=== PATIENT | male | born 1970 | race Two or more races ===

== ENCOUNTER 2024-12-27 05:55 | Emergency (ER) | payer MEDICAID, SELFPAY ==
[2024-12-27] VITALS (8 sets, daily range): BP systolic 107–181; BP diastolic 76–92; PULSE 54–80; RESP 18–19; TEMP 36.4–37.1; O2SAT 94–99; BMI 30.2
--- NOTE | 2024-12-27 | XR_ITS ---
MRI abdomen, without contrast. MRCP Date and time of exam: December 27, 2024 1457 hrs. Indications: Epigastric pain nausea vomiting several days, elevated liver function tests on laboratory examination today Technique: Multiple axial and coronal images of the abdomen have been obtained with the Siemens 1.5T MRI scanner. Images obtained included T1 weighted transverse images, T2-weighted transverse images, T2-weighted transverse images fat-suppressed, T2 weighted haste fat suppressed transverse images, T1 weighted images, in and out of phase images, T2-weighted coronal images, breath hold, T2 weighted haze coronal images as well as T2 weighted coronal thick slab images, MRCP. Findings: Cirrhosis, liver nodular in contour No intrahepatic biliary tract dilatation No gallstones No significant thickening of the gallbladder wall Common hepatic duct common bile duct are not enlarged, 3 mm no common bile duct stones No pancreatic mass No splenomegaly No hydronephrosis Aorta normal size Impression: Cirrhosis. Negative for cholelithiasis, negative for cholecystitis No common hepatic or common bile duct stones
--- NOTE | 2024-12-27 06:26 | EDNOTE_ITS ---
ED Abdominal Pain RME/HPI General Chief Complaint: Abdominal Pain Stated complaint: UPPER ABDOMINAL PAIN Time seen by provider: 12/27/24 06:19 Arrival date/time: 12/27/24 05:55 RME / HPI RME / HPI narrative: DR. INIGUEZ MAIN ED EVALUATION: This section includes all my notes and documentations, including HPI, PE, and ED course.? Tarun Iniguez MD HPI: 54 year old male with epigastric pain for several days. With nausea and vomiting and anorexia. No surgeries, daily medications, or known allergies. No other complaints. ROS: All negative except as documented in HPI. Physical Exam: General:? Alert and oriented.? Appears uncomfortable. Eyes:? Conjunctivae and lids clear. ENT:? No nasal congestion.? ? Neck:? Supple. Lungs:? No respiratory distress.? Abdomen: Soft with epigastric tenderness. Decreased bowel sounds. No distention. No rebound or guarding. Skin:? Warm and dry.? Neuro:? Alert and oriented X 3.? I reviewed all diagnostic test results. My review of the gallbladder US report is?NAD. My review of the CT of abdomen/pelvis is cirrhosis, mild thickening of the gallbladder wall, consider HIDA scan. Blood tests and urine tests remarkable for total bili 4.7, direct bili 1.7, AST 141, ALT 54, alk phos 167. Treatment here included Famotidine 40 mg PO X1, Sodium Chloride (Ns) 1,000 mls @ 999 mls/hr IV, Ketorolac Tromethamine 30 mg IVP X1, Morphine Sulfate 6 mg IVP X1, Ondansetron HCl 4 mg PO X2 total 8 mg, Pantoprazole Sodium 40 mg PO X1. MRCP ordered. Patient signed out to Dr. Cobb at 1230 hours, pending MRCP. Tarun Iniguez MD Related Data Previous Rx's ?Medication ?Instructions ?Recorded cyclobenzaprine 5 mg tablet 5 mg PO TID PRN muscle spa sm #30 11/08/24 tabs naproxen 500 mg tablet 500 mg PO BID PRN pain #30 t abs 05/02/24 Allergies Allergy/AdvReac Type Severity Reaction Status Date / Time No Known Allergies Allergy Verified 05/02/24 20:53 Course Quality Measures none Orders Category Date Time Status CT Screening NOW Care 12/27/24 09:09 Active MRI Screening NOW Care 12/27/24 09:10 Active Saline [Insert IV] NOW Care 12/27/24 09:[address] abdomen pelvis w con Stat Exams 12/27/24 09:09 Completed MR MRCP Stat Exams 12/27/24 Ordered US gall bladder Stat Exams 12/27/24 06:36 Completed Amylase Stat Lab 12/27/24 07:53 Completed Bilirubin,Direct Stat Lab 12/27/24 07:53 Completed CBC Stat Lab 12/27/24 07:53 Completed CMP [Comprehensive Metabolic Panel] Stat Lab 12/27/24 07:53 Completed Lipase Stat Lab 12/27/24 07:53 Completed Magnesium Stat Lab 12/27/24 07:53 Completed UA, C/S IF [Urinalysis, C/S if Indicated] Stat Lab 12/27/24 07:22 Completed Famotidine [Pepcid] Med 12/27/24 06:35 Discontinued 40 mg PO X1 ONE Ketorolac Inj [Toradol Inj] Med 12/27/24 11:30 Discontinued 30 mg IVP X1 ONE Morphine Inj Med 12/27/24 09:09 Discontinued 6 mg IVP X1 ONE Ondansetron Inj [Zofran Inj] Med 12/27/24 09:09 Discontinued 4 mg IVP X1 ONE Ondansetron Odt [Zofran Odt] Med 12/27/24 06:35 Discontinued 4 mg PO X1 ONE Pantoprazole [Protonix] Med 12/27/24 06:35 Discontinued 40 mg PO X1 ONE Sodium Chloride 0.9% 1000 ml [Ns] 1,000 ml Med 12/27/24 09:09 Discontinued IV 999 mls/hr Vital Signs Vital signs: Vital Signs Temperature 98.6 F 12/27/24 06:03 Pulse Rate 65 12/27/24 06:03 Respiratory Rate 19 12/27/24 06:03 Blood Pressure 174/86 H 12/27/24 06:03 Pulse Oximetry (%) 99 12/27/24 06:03 Oxygen Delivery Method Room Air 12/27/24 06:03 Abdominal Pain MDM MDM Narrative MDM Narrative:: I, Erinn Starkey, am scribing for and in the presence of Dr. Iniguez. 54 year old male with epigastric pain onset 2 days. With nausea and vomiting. Denies any PMHx, surgeries, daily medications, or known allergies. No other complaints. Patient data External records reviewed:: [facility] previous records Clinical information provided by:: patient Social determinants that could affect healthcare access:: none Patient has the following chronic illnesses:: Denies any PMHx, surgeries, daily medications, or known allergies. How is presenting disease/condition affected by chronic disease/condition?: no chronic disease Evaluation data The following diagnostics were reviewed and interpreted by me:: lab results and radiology exam(s) Lab and/or radiology exams considered but not ordered:: none Interpretation Summary: I reviewed all diagnostic test results. My review of the gallbladder US report is?NAD. My review of the CT of abdomen/pelvis is cirrhosis, mild thickening of the gallbladder wall, consider HIDA scan. Blood tests and urine tests remarkable for total bili 4.7, direct bili 1.7, AST 141, ALT 54, alk phos 167. Medications / Prescriptions Medications or Prescriptions considered but not ordered:: none Medication administrations:: Medication Administration History Discontinued Medications Famotidine (Famotidine 20 Mg Tablet) 40 mg PO X1 ONE Stop: 12/27/24 06:36 Last Admin: 12/27/24 07:07 Dose: 40 mg Documented By: MARYLOU Sodium Chloride (Ns) 1,000 mls @ 999 mls/hr IV .Q1H1M ONE Stop: 12/27/24 10:09 Last Admin: 12/27/24 11:31 Dose: 999 mls/hr Documented By: MARYLOU Ketorolac Tromethamine (Ketorolac Inj 30 Mg/Ml Vial) 30 mg IVP X1 ONE Stop: 12/27/24 11:31 Last Admin: 12/27/24 11:39 Dose: 30 mg Documented By: MARYLOU Morphine Sulfate (Morphine Sulf Inj 10 Mg/Ml Vial) 6 mg IVP X1 ONE Stop: 12/27/24 09:10 Last Admin: 12/27/24 11:32 Dose: 6 mg Documented By: MARYLOU Ondansetron HCl (Ondansetron Odt 4 Mg Tabrap) 4 mg PO X1 ONE; Protocol Stop: 12/27/24 06:36 Last Admin: 12/27/24 07:07 Dose: 4 mg Documented By: MARYLOU Ondansetron HCl (Ondansetron Inj 2 Mg/Ml Inj 2 Ml) 4 mg IVP X1 ONE; Protocol Stop: 12/27/24 09:10 Last Admin: 12/27/24 11:32 Dose: 4 mg Documented By: MARYLOU Pantoprazole Sodium (Pantoprazole 40 Mg Tablet) 40 mg PO X1 ONE Stop: 12/27/24 06:36 Last Admin: 12/27/24 07:07 Dose: 40 mg Documented By: DB Famotidine 40 mg PO X1, Sodium Chloride (Ns) 1,000 mls @ 999 mls/hr IV, Ketorolac Tromethamine 30 mg IVP X1, Morphine Sulfate 6 mg IVP X1, Ondansetron HCl 4 mg PO X2 total 8 mg, Pantoprazole Sodium 40 mg PO X1. Consultations Consultation(s) initiated? (list below): No Diagnosis Differential diagnosis abdominal pain: abdominal pain, acute appendicitis, calculus of kidney, constipation, diverticulitis, endometriosis, gastroenteritis, pancreatitis, small bowel obstruction and other (Biliary colic, GERD, PUD, gastritis) Most likely diagnosis given after review of the tests above:: Complete diagnostics pending. Admission Indicated Admission indicated?: not indicated Explain why admission is indicated or not indicated:: Complete diagnostics pending. Admission Request Was there a request for admission?: No Disposition Plan Disposition Plan: other (specify) (Patient signed out to Dr. Cobb at 1230 hours, pending MRCP.) Discharge Plan Prescriptions/Referrals Prescriptions/Med Rec: No Action naproxen 500 mg tablet 500 mg PO BID PRN (Reason: pain) Qty: 30 0RF cyclobenzaprine 5 mg tablet 5 mg PO TID PRN (Reason: muscle spasm) Qty: 30 0RF Referrals: Levy Puente MD [Primary Care Provider] - In 1 week Problem List Clinical Impression: Abdominal pain Patient/Caregiver Discharge Instructions Print Language: [place]ian
--- NOTE | 2024-12-27 06:36 | XR_ITS ---
Examination: Abdomen sonogram, Limited Date and time of exam: December 27, 2024, 0709 hours INDICATIONS: Epigastric pain and vomiting beginning today Technique: Real-time jones scale transabdominal sonographic images of the upper abdomen obtained. Findings: Negative for gallstones Gallbladder wall 0.35 cm no edema Common bile duct 0.4 cm Pancreatic head 2.5 cm Liver 14.2 cm irregular contour fatty infiltration Normal hepatopedal portal venous and Patent IVC IMPRESSION: Normal gallbladder Primary hepatocellular disease
[2024-12-27] MEDS: PANTOPRAZOLE 40 MG TABLET PO (07:07)
[2024-12-27] MEDS: FAMOTIDINE 20 MG TABLET 40 MG PO (07:07)
[2024-12-27] MEDS: ONDANSETRON ODT 4 MG TABRAP PO (07:07)
[2024-12-27 07:30] LABS: Collection Type, Urine Clean Catch; RBC,Urine 0 /hpf (0-3); WBC,Urine 0 /hpf (0-5)
[2024-12-27 07:49] LABS: Bacteria,Urine Rare; Bilirubin,Urine Negative (Negative); Blood,Urine Negative (Negative); Clarity,Urine Clear (Clear/Hazy); Color,Urine Yellow (Lt Yel-Yel); Culture Indicated,Urine Not Indicated; Glucose, Urine Negative (Negative); Ketones,Urine Negative (Negative); Leukocyte Esterase,Urine Negative (Negative); Nitrite,Urine Negative (Negative); PH,Urine 7.0 (5.0-7.0); Protein,Urine Negative (Neg - Trace); Specific Gravity,Urine 1.020 (1.001-1.035); Squamous Epithelial Cell,Urine < 1 /hpf (0-5); Urobilinogen,Urine 3.0 mg/dL (0.0-1.0)
[2024-12-27 08:15] LABS: Basophils # (Auto) 0.1 Thou/mm3 (0.0-0.2); Basophils % (Auto) 1 % (0-2.5); Eosinophils # (Auto) 0.1 Thou/mm3 (0.0-0.5); Eosinophils % (Auto) 2 % (0-10); Hematocrit 42.1 % (41.0-53.0); Hemoglobin 14.7 g/dL (13.5-16.0); Immature Granulocytes Auto 0.01 Thou/mm3 (0.00-0.00); Lymphocytes # (Auto) 1.6 Thou/mm3 (1.0-4.8); Lymphocytes % (Auto) 28 % (10-50); Mean Corpuscular HGB Conc 34.9 g/dl (31.0-37.0); Mean Corpuscular Hemoglobin 34.5 pg (25.0-35.0); Mean Corpuscular Volume 99 fL (80-100); Monocytes # (Auto) 0.6 Thou/mm3 (0.0-0.8); Monocytes % (Auto) 9 % (0-12); Neutrophils # (Auto) 3.5 Thou/mm3 (1.8-7.7); Neutrophils % (Auto) 59 % (37-80); Nucleated Red Blood Cell # 0.00 Thou/mm3 (0.00-0.00); Nucleated Red Blood Cell % 0 /100 WBC (0); Platelet Count 106 Thou/mm3 (140-440); RDW Standard Deviation 52.6 fL (35.1-43.9); Red Blood Count 4.26 Miln/mm3 (4.50-5.90); White Blood Count 6.0 Thou/mm3 (3.8-10.6)
[2024-12-27 08:40] LABS: Alanine Aminotransferase 54 U/L (10-49); Albumin, Serum 3.5 gm/dL (3.5-5.0); Albumin/Globulin Ratio 0.9 (1.2-2.2); Alkaline Phosphatase 167 U/L (46-116); Amylase 138 U/L (30-118); Anion Gap 11 (7-16); Aspartate Amino Transferase 141 U/L (0-34); BUN/Creatinine Ratio 10 Ratio (12-20); Bilirubin,Direct 1.7 mg/dL (0.0-0.3); Bilirubin,Total 4.7 mg/dL (0.3-1.2); Blood Urea Nitrogen 7 mg/dL (9-23); Calcium 8.3 mg/dL (8.3-10.6); Calcium (Corrected) 8.7 mg/dL (8.5-10.1); Carbon Dioxide 25.0 mMol/L (20.0-31.0); Chloride 107 mMol/L (98-107); Creatinine (Component) 0.7 mg/dL (0.6-1.3); Globulin 3.9 gm/dL (2.3-3.5); Glucose 112 mg/dL (74-106); Lipase 70 U/L (12-53); Magnesium 2.0 mg/dL (1.6-2.6); Osmolality,Calculated 283 (275-295); Potassium 4.2 mMol/L (3.4-5.1); Sodium 143 mMol/L (136-145); Total Protein 7.4 gm/dL (5.7-8.2); eGFR > 60 See Note
--- NOTE | 2024-12-27 09:09 | XR_ITS ---
Examination: CT abdomen with intravenous contrast CT pelvis with intravenous contrast 2-D coronal reconstructions 2-D sagittal reconstructions Date and time of exam:December 27, 2024, 11:25 AM Indications: Onset mid abdominal pain today. CTDI: vol (mGy) 8.59 DLP: (mGycm) 493 Technique: Multiple axial sections of the abdomen and pelvis have been obtained. 64 slice high-resolution scanner used. 3 mm axial sections have been obtained, post intravenous injection 60 cc [id number] 2-D sagittal, coronal reconstructions obtained. Low dose protocols were performed. One or more of the following dose reduction techniques were used; automated exposure control, adjustment of the mA and/or KV according to patient size, use of iterative reconstruction technique. Findings: Cirrhosis, liver nodular in contour, no focal liver lesions No gallstones, mild thickening of the gallbladder wall No splenic or pancreatic lesion No renal or ureteral calculi, no hydronephrosis Aorta normal size Normal appendix No bowel obstruction Scattered colonic diverticulosis No diverticulitis Mild prostatomegaly, prostate is irregular in contour No bladder mass Impression: Cirrhosis. No bowel obstruction Mild thickening of the gallbladder wall, consider HIDA scan follow-up
[2024-12-27] MEDS: SODIUM CHLORIDE 0.9% 1000 ML 1,000 ML 999 ML IV (11:31)
[2024-12-27] MEDS: ONDANSETRON INJ 2 MG/ML INJ 2 ML 4 MG IVP (11:32)
[2024-12-27] MEDS: MORPHINE SULF INJ 10 MG/ML VIAL 6 MG IVP (11:32)
[2024-12-27] MEDS: KETOROLAC INJ 30 MG/ML VIAL IVP (11:39)
--- NOTE | 2024-12-27 12:23 | PD.EDADDENDU ---
Emergency Room Addendum <Erinn Starkey - Last Filed: 12/27/24 16:41> Addendum Narrative: 1230: Care assumed from Dr. Iniguez, the previous shift emergency physician. Past medical, surgical, social and family history reviewed. Vitals and home medications reviewed. I will assume the care of the patient at this time. Please refer to the emergency department record for history and examination from initial visit.? Physical exam by me shows patient under no acute distress at this time. Patient remains clinically stable throughout the emergency department visit. Re-assessment at the time of disposition demonstrates that the patient is in no acute distress. We reviewed all the results, analysis, and treatment plans. Patient is amenable to discharge. Strict return precautions were outlined. Patient was discharged in stable condition. Diagnoses: -Abdominal pain -Cirrhosis of liver MD Attestation <German Cobb MD - Last Filed: 12/27/24 12:45> MD Attestation Patient was not aware of his liver cirrhosis Results <Erinn Starkey - Last Filed: 12/27/24 16:41> Objective Laboratory: Laboratory Last Values WBC 6.0 Thou/mm3 (3.8-10.6) 12/27/24 07:53 RBC 4.26 Miln/mm3 (4.50-5.90) L 12/27/24 07:53 Hgb 14.7 g/dL (13.5-16.0) 12/27/24 07:53 Hct 42.1 % (41.0-53.0) 12/27/24 07:53 MCV 99 fL (80-100) 12/27/24 07:53 MCH 34.5 pg (25.0-35.0) 12/27/24 07:53 MCHC 34.9 g/dl (31.0-37.0) 12/27/24 07:53 RDW Std Deviation 52.6 fL (35.1-43.9) H 12/27/24 07:53 Plt Count 106 Thou/mm3 (140-440) L 12/27/24 07:53 Neut % (Auto) 59 % (37-80) 12/27/24 07:53 Lymph % (Auto) 28 % (10-50) 12/27/24 07:53 [place] % (Auto) 9 % (0-12) 12/27/24 07:53 Eos % (Auto) 2 % (0-10) 12/27/24 07:53 Baso % (Auto) 1 % (0-2.5) 12/27/24 07:53 Neut # (Auto) 3.5 Thou/mm3 (1.8-7.7) 12/27/24 07:53 Lymph # (Auto) 1.6 Thou/mm3 (1.0-4.8) 12/27/24 07:53 [place] # (Auto) 0.6 Thou/mm3 (0.0-0.8) 12/27/24 07:53 Eos # (Auto) 0.1 Thou/mm3 (0.0-0.5) 12/27/24 07:53 Baso # (Auto) 0.1 Thou/mm3 (0.0-0.2) 12/27/24 07:53 Immature Gran # (Auto) 0.01 Thou/mm3 (0.00-0.00) H 12/27/24 07:53 Absolute Nucleated RBC 0.00 Thou/mm3 (0.00-0.00) 12/27/24 07:53 Immature Gran % 0 % (0-0) 12/27/24 07:53 Nucleated RBC % 0 /100 WBC (0) 12/27/24 07:53 Sodium 143 mMol/L (136-145) 12/27/24 07:53 Potassium 4.2 mMol/L (3.4-5.1) 12/27/24 07:53 Chloride 107 mMol/L (98-107) 12/27/24 07:53 Carbon Dioxide 25.0 mMol/L (20.0-31.0) 12/27/24 07:53 Anion Gap 11 (7-16) 12/27/24 07:53 BUN 7 mg/dL (9-23) L 12/27/24 07:53 Creatinine 0.7 mg/dL (0.6-1.3) 12/27/24 07:53 Estim Creat Clear Calc Not Performed. 12/27/24 07:53 eGFR > 60 See Note (60-) 12/27/24 07:53 BUN/Creatinine Ratio 10 Ratio (12-20) L 12/27/24 07:53 Glucose 112 mg/dL (74-106) H 12/27/24 07:53 Calculated Osmolality 283 (275-295) 12/27/24 07:53 Calcium 8.3 mg/dL (8.3-10.6) 12/27/24 07:53 Corrected Calcium 8.7 mg/dL (8.5-10.1) 12/27/24 07:53 Magnesium 2.0 mg/dL (1.6-2.6) 12/27/24 07:53 Total Bilirubin 4.7 mg/dL (0.3-1.2) H 12/27/24 07:53 Direct Bilirubin 1.7 mg/dL (0.0-0.3) H 12/27/24 07:53 AST 141 U/L (0-34) H 12/27/24 07:53 ALT 54 U/L (10-49) H 12/27/24 07:53 Alkaline Phosphatase 167 U/L (46-116) H 12/27/24 07:53 Total Protein 7.4 gm/dL (5.7-8.2) 12/27/24 07:53 Albumin 3.5 gm/dL (3.5-5.0) 12/27/24 07:53 Globulin 3.9 gm/dL (2.3-3.5) H 12/27/24 07:53 Albumin/Globulin Ratio 0.9 (1.2-2.2) L 12/27/24 07:53 Amylase 138 U/L (30-118) H 12/27/24 07:53 Lipase 70 U/L (12-53) H 12/27/24 07:53 Ur Collection Type Clean Catch 12/27/24 07:22 Urine Color Yellow (Lt Yel-Yel) 12/27/24 07:22 Urine Clarity Clear (Clear/Hazy) 12/27/24 07:22 Urine pH 7.0 (5.0-7.0) 12/27/24 07:22 Ur Specific [place] 1.020 (1.001-1.035) 12/27/24 07:22 Urine Protein Negative (Neg - Trace) 12/27/24 07:22 Urine Glucose (UA) Negative (Negative) 12/27/24 07:22 Urine Ketones Negative (Negative) 12/27/24 07:22 Urine Blood Negative (Negative) 12/27/24 07:22 Urine Nitrite Negative (Negative) 12/27/24 07:22 Urine Bilirubin Negative (Negative) 12/27/24 07:22 Urine Urobilinogen (Auto) 3.0 mg/dL (0.0-1.0) 12/27/24 07:22 Ur Leukocyte Esterase Negative (Negative) 12/27/24 07:22 Urine RBC 0 /hpf (0-3) 12/27/24 07:22 Urine WBC 0 /hpf (0-5) 12/27/24 07:22 Ur Squamous Epith Cells < 1 /hpf (0-5) 12/27/24 07:22 Urine Bacteria Rare (None) 12/27/24 07:22 Ur Culture Indicated? Not Indicated 12/27/24 07:22 Imaging: Procedure(s): MR MRCP Accession Number(s): [id number] cc: Levy Puente MD; Tarun Iniguez MD; Yong Carlos MD~ MRI abdomen, without contrast. MRCP Date and time of exam: December 27, 2024 1457 hrs. Indications: Epigastric pain nausea vomiting several days, elevated liver function tests on laboratory examination today Technique: Multiple axial and coronal images of the abdomen have been obtained with the Siemens 1.5T MRI scanner. Images obtained included T1 weighted transverse images, T2-weighted transverse images, T2-weighted transverse images fat-suppressed, T2 weighted haste fat suppressed transverse images, T1 weighted images, in and out of phase images, T2-weighted coronal images, breath hold, T2 weighted haze coronal images as well as T2 weighted coronal thick slab images, MRCP. Findings: Cirrhosis, liver nodular in contour No intrahepatic biliary tract dilatation No gallstones No significant thickening of the gallbladder wall Common hepatic duct common bile duct are not enlarged, 3 mm no common bile duct stones No pancreatic mass No splenomegaly No hydronephrosis Aorta normal size Impression: Cirrhosis. Negative for cholelithiasis, negative for cholecystitis No common hepatic or common bile duct stones Dictated By: Yong Carlos MD <German Cobb MD - Last Filed: 12/27/24 12:45> Objective Laboratory: Laboratory Last Values WBC 6.0 Thou/mm3 (3.8-10.6) 12/27/24 07:53 RBC 4.26 Miln/mm3 (4.50-5.90) L 12/27/24 07:53 Hgb 14.7 g/dL (13.5-16.0) 12/27/24 07:53 Hct 42.1 % (41.0-53.0) 12/27/24 07:53 MCV 99 fL (80-100) 12/27/24 07:53 MCH 34.5 pg (25.0-35.0) 12/27/24 07:53 MCHC 34.9 g/dl (31.0-37.0) 12/27/24 07:53 RDW Std Deviation 52.6 fL (35.1-43.9) H 12/27/24 07:53 Plt Count 106 Thou/mm3 (140-440) L 12/27/24 07:53 Neut % (Auto) 59 % (37-80) 12/27/24 07:53 Lymph % (Auto) 28 % (10-50) 12/27/24 07:53 [place] % (Auto) 9 % (0-12) 12/27/24 07:53 Eos % (Auto) 2 % (0-10) 12/27/24 07:53 Baso % (Auto) 1 % (0-2.5) 12/27/24 07:53 Neut # (Auto) 3.5 Thou/mm3 (1.8-7.7) 12/27/24 07:53 Lymph # (Auto) 1.6 Thou/mm3 (1.0-4.8) 12/27/24 07:53 [place] # (Auto) 0.6 Thou/mm3 (0.0-0.8) 12/27/24 07:53 Eos # (Auto) 0.1 Thou/mm3 (0.0-0.5) 12/27/24 07:53 Baso # (Auto) 0.1 Thou/mm3 (0.0-0.2) 12/27/24 07:53 Immature Gran # (Auto) 0.01 Thou/mm3 (0.00-0.00) H 12/27/24 07:53 Absolute Nucleated RBC 0.00 Thou/mm3 (0.00-0.00) 12/27/24 07:53 Immature Gran % 0 % (0-0) 12/27/24 07:53 Nucleated RBC % 0 /100 WBC (0) 12/27/24 07:53 Sodium 143 mMol/L (136-145) 12/27/24 07:53 Potassium 4.2 mMol/L (3.4-5.1) 12/27/24 07:53 Chloride 107 mMol/L (98-107) 12/27/24 07:53 Carbon Dioxide 25.0 mMol/L (20.0-31.0) 12/27/24 07:53 Anion Gap 11 (7-16) 12/27/24 07:53 BUN 7 mg/dL (9-23) L 12/27/24 07:53 Creatinine 0.7 mg/dL (0.6-1.3) 12/27/24 07:53 Estim Creat Clear Calc Not Performed. 12/27/24 07:53 eGFR > 60 See Note (60-) 12/27/24 07:53 BUN/Creatinine Ratio 10 Ratio (12-20) L 12/27/24 07:53 Glucose 112 mg/dL (74-106) H 12/27/24 07:53 Calculated Osmolality 283 (275-295) 12/27/24 07:53 Calcium 8.3 mg/dL (8.3-10.6) 12/27/24 07:53 Corrected Calcium 8.7 mg/dL (8.5-10.1) 12/27/24 07:53 Magnesium 2.0 mg/dL (1.6-2.6) 12/27/24 07:53 Total Bilirubin 4.7 mg/dL (0.3-1.2) H 12/27/24 07:53 Direct Bilirubin 1.7 mg/dL (0.0-0.3) H 12/27/24 07:53 AST 141 U/L (0-34) H 12/27/24 07:53 ALT 54 U/L (10-49) H 12/27/24 07:53 Alkaline Phosphatase 167 U/L (46-116) H 12/27/24 07:53 Total Protein 7.4 gm/dL (5.7-8.2) 12/27/24 07:53 Albumin 3.5 gm/dL (3.5-5.0) 12/27/24 07:53 Globulin 3.9 gm/dL (2.3-3.5) H 12/27/24 07:53 Albumin/Globulin Ratio 0.9 (1.2-2.2) L 12/27/24 07:53 Amylase 138 U/L (30-118) H 12/27/24 07:53 Lipase 70 U/L (12-53) H 12/27/24 07:53 Ur Collection Type Clean Catch 12/27/24 07:22 Urine Color Yellow (Lt Yel-Yel) 12/27/24 07:22 Urine Clarity Clear (Clear/Hazy) 12/27/24 07:22 Urine pH 7.0 (5.0-7.0) 12/27/24 07:22 Ur Specific [place] 1.020 (1.001-1.035) 12/27/24 07:22 Urine Protein Negative (Neg - Trace) 12/27/24 07:22 Urine Glucose (UA) Negative (Negative) 12/27/24 07:22 Urine Ketones Negative (Negative) 12/27/24 07:22 Urine Blood Negative (Negative) 12/27/24 07:22 Urine Nitrite Negative (Negative) 12/27/24 07:22 Urine Bilirubin Negative (Negative) 12/27/24 07:22 Urine Urobilinogen (Auto) 3.0 mg/dL (0.0-1.0) 12/27/24 07:22 Ur Leukocyte Esterase Negative (Negative) 12/27/24 07:22 Urine RBC 0 /hpf (0-3) 12/27/24 07:22 Urine WBC 0 /hpf (0-5) 12/27/24 07:22 Ur Squamous Epith Cells < 1 /hpf (0-5) 12/27/24 07:22 Urine Bacteria Rare (None) 12/27/24 07:22 Ur Culture Indicated? Not Indicated 12/27/24 07:22
[2024-12-27] MEDS: ONDANSETRON ODT 4 MG TABRAP 8 MG PO (15:33)
[2024-12-27] MEDS: HYDROmorphone INJ 2 MG/ML VIAL 1 MG IVP (15:34)
--- NOTE | 2024-12-27 16:46 | PC.NURSE ---
SPOKE WITH DR READ IN REGARDS TO ELEVATED LABS PRIOR TO D/C. PER DR. READ, LABS REVIEWED, ELEVATED LABS DUE TO CIRRHOSIS, OKAY TO D/C.
--- NOTE | 2024-12-27 17:30 | PC.NURSE ---
WENT TO D/C PT, PT REPORTS DIZZINESS, BLURRY VISION, AND NAUSEA. DAUGHTER ALSO REPORTS PT IS NOT TALKING LIKE USUAL REPORTS HIS SPEECH IS SLURRED. ATTEMPTED TO STAND PT, PT SAT ON EDGE OF BED, PT UNABLE TO STAND ON HIS OWN. DR READ NOTIFIED AND CALLED TO BEDSIDE FOR ASSESSMENT. PROVIDER TO BED SIDE. PT BEGAN VOMITING BRIGHT RED BLOOD. PER PROVIDER, REPEAT CBC.
[2024-12-27 17:40] LABS: Basophils # (Auto) 0.1 Thou/mm3 (0.0-0.2); Basophils % (Auto) 1 % (0-2.5); Eosinophils # (Auto) 0.1 Thou/mm3 (0.0-0.5); Mean Corpuscular HGB Conc 34.9 g/dl (31.0-37.0); Mean Corpuscular Volume 99 fL (80-100); Monocytes # (Auto) 0.3 Thou/mm3 (0.0-0.8); Nucleated Red Blood Cell # 0.00 Thou/mm3 (0.00-0.00); Nucleated Red Blood Cell % 0 /100 WBC (0); White Blood Count 5.4 Thou/mm3 (3.8-10.6)
[2024-12-27 17:41] LABS: Eosinophils % (Auto) 2 % (0-10); Hematocrit 43.5 % (41.0-53.0); Hemoglobin 15.2 g/dL (13.5-16.0); Immature Granulocytes Auto 0.01 Thou/mm3 (0.00-0.00); Lymphocytes # (Auto) 1.2 Thou/mm3 (1.0-4.8); Lymphocytes % (Auto) 22 % (10-50); Mean Corpuscular Hemoglobin 34.7 pg (25.0-35.0); Monocytes % (Auto) 6 % (0-12); Neutrophils # (Auto) 3.7 Thou/mm3 (1.8-7.7); Neutrophils % (Auto) 70 % (37-80); Platelet Count 99 Thou/mm3 (140-440); RDW Standard Deviation 51.8 fL (35.1-43.9); Red Blood Count 4.38 Miln/mm3 (4.50-5.90)
--- NOTE | 2024-12-27 18:13 | PC.NURSE ---
PER DR SEALS, OKAY TO D/C PT ON PROTONIX AND INSTRUCT PT TO RETURN TO ER IF HE VOMITS BLOOD AGAIN.
--- NOTE | 2024-12-27 18:25 | PC.NURSE ---
ATTEMPTED TO D/C PT. PT CONTINUES TO REPORT DIZZINESS. SON AT BEDSIDE, SON REPORTS PT IS NOT ACTING LIKE HIS USUAL SELF. PROVIDER NOTIFIED.
== END 2024-12-27 19:55 | disposition home or self-care (01) ==
PROVIDERS: Emergency Medicine; Emergency Provider Emergency Medicine; PCP Family Medicine
DX: K74.60 Unspecified cirrhosis of liver (principal)
CPT/HCPCS: 36415; 74177; 76705; 80053; 81001; 82150; 82248; 83690; 83735; 85025; 96361; 96374; 96375; 99285; A4649; J1171; J1885; J2270; J2405; J7030; Q0162; Q9967; S8037; 74181; A9270

== ENCOUNTER 2024-12-29 11:11 | Emergency (ER) | payer MEDICAID, SELFPAY ==
[2024-12-29 11:13] VITALS: BMI 30.2
[2024-12-29 11:49] VITALS: BP 161/88; PULSE 58; RESP 18; TEMP 37.1; O2SAT 98
--- NOTE | 2024-12-29 11:57 | XR_ITS ---
Examination: CT brain head without contrast. 2-D sagittal coronal reconstructions Date and time of exam:December 29, 2024 1257 hours INDICATIONS: Generalized head pain dizziness beginning 4 days ago CTDI: vol (mGy):50.5 DLP: (mGycm):954 Technique: Multiple CT axial sections of the brain have been obtained, 5 mm slice thickness. Contrast has not been administered. 2-D sagittal, coronal reconstructions have been obtained Low dose protocols were performed. One or more of the following dose reduction techniques were used; automated exposure control, adjustment of the mA and/or KV according to patient size, use of iterative reconstruction technique. Findings: Large, 4.6 x 4.0 cm hemorrhage in the posterior right parietal right occipital lobe with surrounding edema Hemorrhages ruptured into the right lateral ventricle and right frontal horn Mass effect, bowing of the cerebral falx posteriorly to the left and shift of the frontal horns to the left 5 mm Cranial vault intact IMPRESSION: Large hemorrhage in the posterior right parietal right occipital lobe with surrounding edema and mass effect, differential would include hemorrhage in a tumor, follow-up brain MRI pre and postcontrast recommended
--- NOTE | 2024-12-29 12:00 | PD.EDHA ---
ED Headache RME/HPI General Chief Complaint: Headache Stated Complaint: FALL/BLURRED VISION SINCE 12/27 Time Seen by Provider: 12/29/24 11:55 Arrival date/time: 12/29/24 11:11 Limitations: no limitations RME / HPI RME / HPI Narrative: 54-year-old male is here today with a 2-day history of mild headache and dizziness. Has no vision changes. No unilateral weakness. No aphasia. He has nausea but no vomiting. Denies any chest pain or abdominal pain. Denies any near syncopal related episodes or any falls. Has no injuries. He has no other acute complaints Related Data Previous Rx's ?Medication ?Instructions ?Recorded cyclobenzaprine 5 mg tablet 5 mg PO TID PRN muscle spasm #30 05/02/24 tabs naproxen 500 mg tablet 500 mg PO BID PRN pain #30 tabs 05/02/24 ondansetron 4 mg disintegrating 4 mg PO Q8H PRN nausea and 12/27/24 tablet vomiting #10 tabs pantoprazole 40 mg tablet,delayed 40 mg PO QDAY #30 tabs 12/27/24 release (Protonix) Allergies Allergy/AdvReac Type Severity Reaction Status Date / Time No Known Allergies Allergy Verified 12/29/24 11:15 Review of Systems Review of Systems Systems Reviewed: All systems reviewed, normal except as documented ED Exam General Limitations: Present no limitations General appearance: Present alert and in no apparent distress Head Head exam: Present atraumatic Eye Eye exam: Present normal appearance, PERRL and EOMI ENT ENT exam: Present normal exam, normal oropharynx and mucous membranes moist Neck Neck exam: Present normal inspection, full ROM and trachea midline Chest Chest inspection: Present normal inspection and symmetric chest wall rise Respiratory Respiratory exam: Present normal lung sounds bilaterally Cardiovascular Cardiovascular exam: Present regular rate, normal rhythm and normal heart sounds Abdominal Exam Abdominal exam: Present soft and normal bowel sounds Extremities Exam Extremities exam: Present normal inspection and full ROM Back Exam Back exam: Present normal inspection and full ROM Neurological Exam Neurological exam: Present alert, oriented X3 and CN II-XII intact Psychiatric Psychiatric exam: Present normal affect and normal mood Skin Skin exam: Present warm, dry, intact and normal color Course Course Course Narrative: At approximately 1300 p.m., with seizure wet read from radiologist. Patient has a right parietal bleed. Patient's blood pressure at this time is 161/88, he has a pulse of 58. He does labetalol as requested. Transfer verbally requested. Patient was informed of these test results. He is agreeable to transfer. He is answering questions appropriately this. He is mentating. He has ongoing dizziness. At approximately 1320 5 PM, case discussed with [facility] transfer center, they will present the case and call us back. Took call from [facility] at 1330 5 PM, they would like a CT angio of the head and neck if this does not impede transfer time. Test were ordered, CT was called and test was also verbally requested. - Consulted [facility] at [place], [place]. Dr. Hou with neurosurgery was consulted at 13:37 Case was discussed. He would like to be contacted once the CTA of the head and neck are resulted for further guidance. Blood pressure management goals will be to keep the blood pressure under 140. - At approximately 1405 p.m. To call from [facility], they will accept the patient. DR. RAMIREZ is accepting. We will keep his blood pressure under 150 systolically and his head at 30 degrees. Attending ER physician informed. Quality Measures Suspected type of Stroke: Hemmorrhagic Last known well (date): 01/27/25 Tenecteplase given: Reason(s) TPA not given: Outside the time window not given stroke and none Orders Category Date Time Status CT Screening NOW Care 12/29/24 13:37 Active Referral - Marketing Copywriter Stat Cons 12/29/24 13:10 Active Transfer to another facility [Transfer/Discharge] Stat Discharge 12/29/24 13:[address] angio carotid w head w Stat Exams 12/29/24 13:[address] head/brain wo con Stat Exams 12/29/24 11:57 Completed Alcohol, Blood Medical Stat Lab 12/29/24 12:06 Completed CBC Stat Lab 12/29/24 12:06 Completed CMP [Comprehensive Metabolic Panel] Stat Lab 12/29/24 12:06 Completed Lipase Stat Lab 12/29/24 12:06 Completed UA [Urinalysis] Stat Lab 12/29/24 12:30 Completed Dexamethasone Inj [Decadron Inj] Med 12/29/24 13:30 Discontinued 10 mg IV X1 ONE Labetalol IV [Trandate IV] Med 12/29/24 14:45 Discontinued 20 mg IVP X1 ONE Labetalol IV [Trandate IV] Med 12/29/24 13:04 Discontinued 5 mg IVP X1 ONE Labetalol IV [Trandate IV] Med 12/29/24 14:28 Discontinued 5 mg IVP X1 ONE Morphine Inj Med 12/29/24 13:22 Discontinued 4 mg IVP X1 ONE Ondansetron Odt [Zofran Odt] Med 12/29/24 12:00 Discontinued 4 mg PO X1 ONE niCARdipine INJ [Cardene Iv] Med 12/29/24 14:22 Discontinued 10 mg IV X1 ONE Vital Signs Vital signs: Vital Signs Temperature 98.7 F 12/29/24 11:49 Pulse Rate 58 L 12/29/24 11:49 Respiratory Rate 18 12/29/24 11:49 Blood Pressure 161/88 H 12/29/24 11:49 Pulse Oximetry (%) 98 12/29/24 11:49 Oxygen Delivery Method Room Air 12/29/24 11:49 Headache MDM Narrative MDM Narrative:: 54-year-old male is here today with a 2-day history of mild headache and dizziness. Has no vision changes. No unilateral weakness. No aphasia. He has nausea but no vomiting. Denies any chest pain or abdominal pain. Denies any near syncopal related episodes or any falls. Has no injuries. He has no other acute complaints Workup was initiated and patient was found to have a large, right parietal/occipital bleed. Patient was Rupa brought back to room 5 for further interventions including blood pressure management. He received doses of morphine and Decadron. Transfer was requested and both [facility] and [place], [place] was contacted and decision to [facility] in [place], [place]. Patient was later accepted by [facility]. See ED course notes for further info. Case was discussed with attending ER physician, nicardipine was requested, however pharmacist states this not available by single IV push. Labetalol was requested instead. Patient to be transferred by [facility]. Patient data External records reviewed:: None Clinical information provided by:: patient and family Social determinants that could affect healthcare access:: none Patient has the following chronic illnesses:: No hypertension, questionable history of liver disease. Patient does not drink alcohol at this time. How is presenting disease/condition affected by chronic disease/condition?: no chronic disease Evaluation data The following diagnostics were reviewed and interpreted by me:: lab results (No leukocytosis or anemia. No hyponatremia or metabolic derangement) and radiology exam(s) (CT without contrast reveals a hemorrhage in the right parietal and occipital lobe.) Lab and/or radiology exams considered but not ordered:: MRI Interpretation Summary: Acute hemorrhage in the right parietal and occipital lobe Medications / Prescriptions Medications or Prescriptions considered but not ordered:: n/a Medication administrations:: Medication Administration History Discontinued Medications Dexamethasone Sodium Phosphate (Dexamethasone Sod Phos Inj 10 Mg/Ml Vial) 10 mg IV X1 ONE Stop: 12/29/24 13:31 Last Admin: 12/29/24 13:33 Dose: 10 mg Documented By: SHELLY Labetalol HCl (Labetalol Inj 5 Mg/Ml Vial 20 Ml) 5 mg IVP X1 ONE Stop: 12/29/24 13:05 Last Admin: 12/29/24 13:32 Dose: 5 mg Documented By: SHELLY Labetalol HCl (Labetalol Inj 5 Mg/Ml Vial 20 Ml) 5 mg IVP X1 ONE Stop: 12/29/24 14:29 Last Admin: 12/29/24 14:33 Dose: 5 mg Documented By: KESHIA Labetalol HCl (Labetalol Inj 5 Mg/Ml Vial 20 Ml) 20 mg IVP X1 ONE Stop: 12/29/24 14:46 Morphine Sulfate (Morphine Sulf Inj 10 Mg/Ml Vial) 4 mg IVP X1 ONE Stop: 12/29/24 13:23 Last Admin: 12/29/24 13:47 Dose: 4 mg Documented By: CATRACHITA Nicardipine HCl (Nicardipine Inj 2.5 Mg/Ml Vial 10 Ml) 10 mg IV X1 ONE Stop: 12/29/24 14:23 Last Admin: 12/29/24 14:47 Dose: Not Given Documented By: RD Non-Admin Reason: Allergy Ondansetron HCl (Ondansetron Odt 4 Mg Tabrap) 4 mg PO X1 ONE; Protocol Stop: 12/29/24 12:01 Last Admin: 12/29/24 13:33 Dose: 4 mg Documented By: SHELLY See above Consultations Consultation(s) initiated? (list below): Yes Diagnosis Differential diagnosis headache: migraine, tension headache, subarachnoid hemorrhage and headache Most likely diagnosis given after review of the tests above:: Hemorrhage right parietal and occipital lobe Admission Indicated Admission indicated?: indicated Admission Request Was there a request for admission?: Yes Admission Attestation Admission request attestation: Discussed case with [] from Hospitalist service regarding admission. Discussed patients ED course, exam findings, labs, and radiology results. The Hospitalist [agrees,declines] to accept the patient for admission. Disposition Plan Disposition Plan: Transfer Critical Care Time Critical Care Time Attestation: The high probability of sudden, clinically significant deterioration in the patient's condition required the highest level of my preparedness to intervene urgently. The services I provided to this patient were to treat and/or prevent clinically significant deterioration. Services included the following: chart data review, reviewing nursing notes and/or old charts, documentation time, nutrition consultant collaboration regarding findings and treatment options, medication orders and management, direct patient care, vital sign assessments and ordering, interpreting and reviewing diagnostic studies and lab tests. Aggregate critical care time includes only time during which I was engaged in work directly related to the patient's care, as described above, whether at bedside or elsewhere in the Emergency Department. It did not include time spent performing other reported procedures or the services of residents, students, nurses or physician assistants. Discharge Plan Plan Patient Disposition: [facility] Facility Pt Being Transferred to: [facility] Service Needed for Transfer: Neurosurgery Patient condition on transfer: Stable Prescriptions/Referrals Prescriptions/Med Rec: No Action naproxen 500 mg tablet 500 mg PO BID PRN (Reason: pain) Qty: 30 0RF cyclobenzaprine 5 mg tablet 5 mg PO TID PRN (Reason: muscle spasm) Qty: 30 0RF ondansetron 4 mg tablet,disintegrating 4 mg PO Q8H PRN (Reason: nausea and vomiting) Qty: 10 0RF pantoprazole [Protonix] 40 mg tablet,delayed release (DR/EC) 40 mg PO QDAY Qty: 30 0RF Referrals: Rianna Woody PA-C [Primary Care Provider] - In 1 week Problem List Clinical Impression: Intracranial bleed Patient/Caregiver Discharge Instructions Print Language: Chinese Stand Alone Forms: Mariya Award Info., Patient Portal Info Letter
[2024-12-29 12:30] LABS: Basophils # (Auto) 0.0 Thou/mm3 (0.0-0.2); Basophils % (Auto) 1 % (0-2.5); Eosinophils # (Auto) 0.0 Thou/mm3 (0.0-0.5); Eosinophils % (Auto) 1 % (0-10); Hematocrit 45.5 % (41.0-53.0); Hemoglobin 15.6 g/dL (13.5-16.0); Immature Granulocytes Auto 0.01 Thou/mm3 (0.00-0.00); Lymphocytes # (Auto) 2.0 Thou/mm3 (1.0-4.8); Lymphocytes % (Auto) 27 % (10-50); Mean Corpuscular HGB Conc 34.3 g/dl (31.0-37.0); Mean Corpuscular Hemoglobin 34.9 pg (25.0-35.0); Mean Corpuscular Volume 102 fL (80-100); Monocytes # (Auto) 0.6 Thou/mm3 (0.0-0.8); Monocytes % (Auto) 8 % (0-12); Neutrophils # (Auto) 4.8 Thou/mm3 (1.8-7.7); Neutrophils % (Auto) 64 % (37-80); Nucleated Red Blood Cell # 0.00 Thou/mm3 (0.00-0.00); Nucleated Red Blood Cell % 0 /100 WBC (0); Platelet Count 118 Thou/mm3 (140-440); RDW Standard Deviation 53.9 fL (35.1-43.9); Red Blood Count 4.47 Miln/mm3 (4.50-5.90); White Blood Count 7.4 Thou/mm3 (3.8-10.6)
[2024-12-29 12:39] LABS: Collection Type, Urine Voided; Squamous Epithelial Cell,Urine 0 /hpf (0-5)
[2024-12-29 12:51] LABS: Alanine Aminotransferase 45 U/L (10-49); Albumin, Serum 3.6 gm/dL (3.5-5.0); Albumin/Globulin Ratio 0.9 (1.2-2.2); Alcohol, Blood Medical < 10.0 mg/dL (0-10.0); Alkaline Phosphatase 132 U/L (46-116); Anion Gap 9 (7-16); Aspartate Amino Transferase 83 U/L (0-34); BUN/Creatinine Ratio 8 Ratio (12-20); Bilirubin,Total 2.6 mg/dL (0.3-1.2); Blood Urea Nitrogen 6 mg/dL (9-23); Calcium 8.7 mg/dL (8.3-10.6); Calcium (Corrected) 9.0 mg/dL (8.5-10.1); Carbon Dioxide 26.6 mMol/L (20.0-31.0); Chloride 104 mMol/L (98-107); Creatinine (Component) 0.8 mg/dL (0.6-1.3); Estimated Creatinine Clearance 108.9 mL/min (>60); Globulin 3.9 gm/dL (2.3-3.5); Glucose 113 mg/dL (74-106); Lipase 81 U/L (12-53); Osmolality,Calculated 278 (275-295); Potassium 4.0 mMol/L (3.4-5.1); Sodium 140 mMol/L (136-145); Total Protein 7.5 gm/dL (5.7-8.2); eGFR > 60 See Note
[2024-12-29 12:59] LABS: Bilirubin,Urine 1+ (Negative); Blood,Urine Negative (Negative); Clarity,Urine Clear (Clear/Hazy); Color,Urine Drk-Yellow (Lt Yel-Yel); Glucose, Urine Negative (Negative); Ketones,Urine Negative (Negative); Leukocyte Esterase,Urine Negative (Negative); Nitrite,Urine Negative (Negative); PH,Urine 6.0 (5.0-7.0); Protein,Urine 1+ (Neg - Trace); RBC,Urine 5 /hpf (0-3); Specific Gravity,Urine 1.043 (1.001-1.035); Urobilinogen,Urine 4.0 mg/dL (0.0-1.0); WBC,Urine 4 /hpf (0-5)
--- NOTE | 2024-12-29 13:17 | PC.NURSE ---
PT PRESENTS TO ED WITH C/O DIZZINESS AND HEADACHE FOR 2 DAYS. PT HAS NO MEDICAL HX DOESNT GO TO THE DOCTOR. PT ALERT AND ORIENTED NO PAIN AT THIS TIME. PA AWARE OF VITALS AND ORDERED FOR BP MEDS. IV PLACED AND PT PLACED ON QUARR[employer] MANAGER. INITIATED TRANSFER NURSE
[2024-12-29 13:32] VITALS: BP 155/82; PULSE 58
[2024-12-29] MEDS: LABETALOL INJ 5 MG/ML VIAL 20 ML IVP ×2 (13:32→14:33)
[2024-12-29] MEDS: DEXAMETHASONE SOD PHOS INJ 10 MG/ML VIAL IV (13:33)
[2024-12-29] MEDS: ONDANSETRON ODT 4 MG TABRAP PO (13:33)
[2024-12-29 13:36] VITALS: BP 143/77; PULSE 66; RESP 18; TEMP 36.7; O2SAT 100
--- NOTE | 2024-12-29 13:36 | XR_ITS ---
Examination: CTA carotids with intravenous contrast CTA brain, head with intravenous contrast. 2-D sagittal, coronal reconstructions. 3-D reconstructions. Exam date and time: December 29, 2024 1355 hours INDICATIONS: Dizziness altered mental status today, large hemorrhage in the posterior right parietal right occipital lobe with surrounding edema on CT brain scan today CTDI: vol (mGy) 44.32 DLP: (mGycm) 567 Technique: Multiple CTA axial brain, head carotid images post intravenous contrast injection 75 cc, Isovue-370. 2-D sagittal, coronal reconstructions. 3-D reconstructions, 3-D post processing including vascular maximum intensity projection images. Low dose protocols were performed. One or more of the following dose reduction techniques were used; automated exposure control, adjustment of the mA and/or KV according to patient size, use of iterative reconstruction technique. Findings: No significant common carotid carotid bifurcation or internal carotid artery stenoses Dominant left vertebral artery in the neck with no critical stenoses Intracranial vertebral arteries basilar artery and posterior cerebral branches do fill Intravenous injection subtle or and supraclinoid portions internal carotid arteries fill as well as M1 segments middle cerebral arteries and middle cerebral artery trifurcation vessels Anterior cerebral arteries demonstrate no large vessel occlusions Please see the CT brain scan report IMPRESSION: No significant neck arterial stenoses No cerebral large vessel arterial occlusions
[2024-12-29] MEDS: MORPHINE SULF INJ 10 MG/ML VIAL 4 MG IVP (13:47)
--- NOTE | 2024-12-29 13:50 | PC.CC ---
Addendum entered by Ankita Morrissey RN 12/29/24 17:47: 1747: MRCP, CT ABD, U/S GB, CTA OF HEAD and NECK reports faxed to [facility]. 1740: received call from Leora w/ [facility] requesting the reports below. Addendum entered by Ankita Morrissey RN 12/29/24 17:19: 1656: Leora from [facility] called requesting mrcp, ct abd, u/s gb from 12/27. CTA of head and neck sent as well throught synapse. Addendum entered by Ankita Morrissey RN 12/29/24 14:47: 1447: Called Katia at [facility], transport ETA information provided. Addendum entered by Ankita Morrissey RN 12/29/24 14:16: 1412: tracker updated, report given TO [facility]. [facility] packet and hospital packet created. CD x1 in hospital packet. 1404: Called [facility], spoke to Shila to initiated transport. ETA 1440. 1404: Received call from Katia w/ [facility], pt accepted ED to ED by Dr. Hanks. Katia requested to speak to [facility], call initiated. Pt currently in CT Addendum entered by Ankita Morrissey RN 12/29/24 14:03: 1402: [facility], he stated hold off until CTA is completed as both [facility] and [facility] are requesting the CTA of head and neck to be completed. Original Note: 1345: sent clinicals to [facility]. called tc. peer to peer call initiated with dr Vega. CTA AND MRI OF HEAD AND NECK REQUESTED BY DR VEGA TO R/O AVM. will call [facility] back when CTA is complete. 1344: called [facility] back, still reviewing. they will call me back with determination 1323: called [facility], initated transfer request. Call transfer to [facility]. clinicals sent. [facility] contacted 11 min eta. 1321: received call from [facility] to initiate stat transfer for intracranial bleed
[2024-12-29 14:33] VITALS: BP 164/92; PULSE 64
[2024-12-29 14:55] VITALS: BP 154/85; PULSE 65
[2024-12-29] MEDS: LABETALOL INJ 5 MG/ML VIAL 20 ML 20 MG IVP (14:55)
--- NOTE | 2024-12-29 14:56 | PC.NURSE ---
[facility] ARRIVED TO [facility]SPORT [facility]IENT [facility]
--- NOTE | 2024-12-29 15:03 | PC.NURSE ---
REPORT GIVEN TO BONNIE GARIBAY AT [facility]
== END 2024-12-29 15:04 | disposition short-term general hospital (02) ==
PROVIDERS: Physician Assistant Medical; Emergency Provider Family Medicine
DX: I62.9 Nontraumatic intracranial hemorrhage, unspecified (principal)
CPT/HCPCS: 36415; 70450; 70496; 70498; 80053; 80320; 81001; 83690; 85025; 99285; A4649; J1100; J2270; J3490; Q0162; Q9967; G0480; J1920

== ENCOUNTER → 2025-02-09 | Outpatient (CLI) | payer MEDICAID, SELFPAY ==
--- NOTE | 2025-02-09 10:54 | XR_ITS ---
Examination: CT soft tissue neck, with intravenous contrast. 2-D coronal reconstructions. 2-D sagittal reconstructions. Date and time of exam :February 09, 2025 1057 hours INDICATIONS: Bilateral neck lump noticed beginning 3 months ago, history brain hemorrhage 10/29/2024. CTDI: vol (mGy):14.5 DLP: (mGycm):461 Technique: 1.25 mm axial sections of the neck of the obtained. Coronal and sagittal reconstructions have been obtained. Intravenous contrast administered 50 cc Isovue-370. Low dose protocols were performed. One or more of the following dose reduction techniques were used; automated exposure control, adjustment of the mA and/or KV according to patient size, use of iterative reconstruction technique. Findings: Symmetrical nasopharynx oropharynx Symmetrical parotid glands Bilateral carotid triangle lymph nodes, the largest on the left side 11 mm The left submandibular gland is larger than the right submandibular gland with minimal inflammation The larynx appears normal Thyroid lobes are not enlarged Epiglottis is not thickened Lung apices are clear IMPRESSION: Cervical lymphadenopathy as above, recommend 6 month follow-up CT soft tissue neck Suspicious for left submandibular sialoadenitis, clinical correlation advised
== END | disposition home or self-care (01) ==
DX: R59.0 Localized enlarged lymph nodes (principal)
CPT/HCPCS: 70491; A4649; Q9967